=== PATIENT | male | born 1940 | race American Indian/Alaskan Native ===

== ENCOUNTER 2019-02-07 17:05 | Inpatient (IN) | payer MEDICARE ==
[2019-02-07 17:05] VITALS: BMI 33.0
[2019-02-07] MEDS ORDERED: Morphine 4 MG/ML VIAL IV ONE (18:20)
[2019-02-07] MEDS ORDERED: Morphine 4 MG/ML VIAL ONE (18:34)
[2019-02-07 18:38] LABS: BASO # 0.1 K/uL (0.0-0.2); BASO % 2.3 % (0.0-2.0); EOS # 0.1 K/uL (0.0-0.7); EOS % 2.2 % (0.0-4.0); HEMOGLOBIN 12.1 g/dL (12.0-18.0); LYMPH # 0.6 K/uL (1.0-4.3); MEAN CORPUSCULAR HEMOGLOBIN 24.5 pg (27.0-31.0); MEAN PLATELET VOLUME 9.2 fL (7.2-11.7); MONO # 0.5 K/uL (0.0-0.8); MONO % 12.7 % (0.0-10.0); NEUT # 2.5 K/uL (1.8-7.0); NEUT % 66.8 % (50.0-75.0); NRBC % 0.1 % (0.0-2.0); RBC 4.92 Mil/uL (4.40-5.90); RED CELL DISTRIBUTION WIDTH 15.5 % (11.5-14.5); WHITE BLOOD COUNT 3.7 K/uL (4.8-10.8)
[2019-02-07 18:41] LABS: MEAN CELL VOLUME 76.6 fL (80.0-94.0)
[2019-02-07 18:45] LABS: INR 1.2; PROTHROMBIN TIME 12.6 SECONDS (9.7-12.2)
--- NOTE | 2019-02-07 18:47 | RAD ---
Date of service: 02/07/2019 HISTORY: Shortness of breath COMPARISON: No prior. TECHNIQUE: Chest PA and lateral FINDINGS: LINES AND TUBES: None. LUNG AND PLEURA: The lungs are well inflated. There is a 7 mm faint nodule in the left upper pole. There is mild pulmonary venous no pleural effusion or pneumothorax. HEART AND MEDIASTINUM: There is moderate cardiomegaly. No aortic atherosclerotic calcifications present. The hilar and mediastinal contours are within normal limits. SKELETAL STRUCTURES: The bony structures are within normal limits for the patient's age. VISUALIZED UPPER ABDOMEN: Normal. OTHER FINDINGS: None. IMPRESSION: No active pulmonary disease. Congestion. 7 mm faint nodule in the left upper pole. Dedicated CT scan of the thorax without intravenous contrast is recommended for further characterization. Moderate cardiomegaly and mild pulmonary venous congestion. The final report is tagged to the PA review folder.
--- NOTE | 2019-02-07 19:03 | C.PDOC ---
History Of Present Illness 78 year old male with PMHx of sarcoidosis is sent to the ED for evaluation by Dr. Louise for chest wall pain. Patient has CT scan done on 02/04 for chest pain as well which showed lung masses and lymph node suspicious for malignancy. Patient denies fever, chills, headache, SOB, palpitations, rash, injury, fall, trauma. Time Seen by Provider: 02/07/19 18:12 Chief Complaint (Nursing): Chest Pain History Per: Patient History/Exam Limitations: no limitations Onset/Duration Of Symptoms: Days Current Symptoms Are (Timing): Still Present Quality: "Pain" Recent travel outside of the [place]: No Additional History Per: Patient Past Medical History Reviewed: Historical Data, Nursing Documentation, Vital Signs Vital Signs: Last Vital Signs Temp 97.4 F L 02/07/19 17:08 Pulse 82 02/07/19 18:39 Resp 22 02/07/19 18:39 BP 160/93 H 02/07/19 18:39 Pulse Ox 100 02/07/19 18:39 - Medical History PMH: HTN, Hypercholesterolemia Denies: Chronic Kidney Disease Surgical History: Tonsillectomy Denies: Pacemaker - [facility] Procedures CORONAR ARTERIOGR-2 CATH (11/23/06) ESOPHAGOGASTRODUODENOSCOPY [EGD] W/CLOSED BIOPSY (08/24/15) INTRODUCTION OF SERUM/TOX/VACCINE INTO MUSCLE, PERC APPROACH (02/01/18) LEFT HEART CARDIAC CATH (11/23/06) LT HEART ANGIOCARDIOGRAM (11/23/06) Family History: States: Unknown Family Hx - Social History Hx Alcohol Use: No Hx Substance Use: No - Immunization History Hx Tetanus Toxoid Vaccination: No Hx Influenza Vaccination: No Hx Pneumococcal Vaccination: No Review Of Systems Constitutional: Negative for: Fever, Chills Cardiovascular: Positive for: Chest Pain. Negative for: Palpitations Respiratory: Negative for: Cough, Shortness of Breath Gastrointestinal: Negative for: Nausea, Vomiting, Abdominal Pain Skin: Negative for: Rash Neurological: Negative for: Weakness, Numbness Physical Exam - Physical Exam Appears: Non-toxic, No Acute Distress Skin: Normal Color, Warm, Dry Head: Atraumatic, Normacephalic Eye(s): bilateral: Normal Inspection Neck: Normal ROM, Supple Chest: Symmetrical Cardiovascular: Rhythm Regular Respiratory: Normal Breath Sounds, No Rales, No Rhonchi, No Wheezing Gastrointestinal/Abdominal: Soft, No Tenderness, No Guarding, No Rebound Extremity: Normal ROM, No Tenderness, No Swelling Neurological/Psych: Oriented x3, Normal Speech, Normal Cognition Gait: Steady ED Course And Treatment - Laboratory Results Result Diagrams: 02/07/19 18:31 02/07/19 18:31 Lab Results: PT 12.6 SECONDS (9.7-12.2) H 02/07/19 18:31 INR 1.2 02/07/19 18:31 APTT 30 SECONDS (21-34) 02/07/19 18:31 ECG: Interpreted By Me, Viewed By Me ECG Rhythm: Sinus Rhythm, L BBB Interpretation Of ECG: Left axis deviation, NO ST/T wave changes Rate From EC (BPM) O2 Sat by Pulse Oximetry: 100 (ON RA) Pulse Ox Interpretation: Normal Medical Decision Making Medical Decision Making: Assessment: Chest pain, lung masses Plan: * EKG * Labs * CXR * Morphine 4 mg IVP * Toradol 30 mg IVP Case discussed with Dr. Louise, wishes to have Nile Henning consulted and admit the patient for chest pain. Disposition Discussed With : Bernardino Henning Doctor Will See Patient In The: Hospital Counseled Patient/Family Regarding: Studies Performed, Diagnosis - Disposition Disposition: HOSPITALIZED Disposition Time: 19:11 Condition: FAIR - Clinical Impression Clinical Impression: Chest pain, Lung mass - Scribe Statement The provider has reviewed the documentation as recorded by the Scribe Warner Garcia All medical record entries made by the Scribe were at my direction and personally dictated by me. I have reviewed the chart and agree that the record accurately reflects my personal performance of the history, physical exam, medical decision making, and the department course for this patient. I have also personally directed, reviewed, and agree with the discharge instructions and disposition.
[2019-02-07 19:06] LABS: ALB/GLOB RATIO 0.7 (1.0-2.1); ALBUMIN 3.9 g/dL (3.5-5.0); AST/SGOT 28 U/L (17-59); BLOOD UREA NITROGEN 26 mg/dL (9-20); CALCIUM 10.3 mg/dl (8.6-10.4); GFR NON-AFRICAN AMERICAN 39
[2019-02-07 19:15] LABS: ALT/SGPT < 6 U/L (21-72)
[2019-02-07 19:16] LABS: B-TYPE NATRIURETIC PEPTIDE 461 pg/mL (0-900)
[2019-02-07 21:04] VITALS: RESP 20
[2019-02-07] MEDS: (Novolin R) Insulin Human Regular 100 units/ml vial SC SCH (21:54)
[2019-02-07 22:42] LABS: SQUAMOUS EPITHIAL < 1 /hpf (0-5); URINE BILIRUBIN NEGATIVE (NEGATIVE); URINE BLOOD NEGATIVE (NEGATIVE); URINE CLARITY Clear (Clear); URINE COLOR Yellow (YELLOW); URINE GLUCOSE (UA) NORMAL (Normal); URINE LEUKOCYTE ESTERASE NEG Leu/uL (Negative); URINE PROTEIN NEGATIVE (NEGATIVE); URINE UROBILINOGEN NORMAL mg/dL (0.2-1.0)
[2019-02-07] MEDS: Magnesium Sulfate 1 gm in D5W 1 GM/100 ML BAG IVPB SCH (23:08)
[2019-02-07 23:12] LABS: CK-MB 1.19 ng/mL (0.0-3.38); TROPONIN I 0.013 ng/mL (0.00-0.120)
[2019-02-08] MEDS: Magnesium Sulfate 1 gm in D5W 1 GM/100 ML BAG IVPB SCH (00:06)
[2019-02-08] MEDS: (Novolin R) Insulin Human Regular 100 units/ml vial SC SCH ×4 (08:00→21:45)
[2019-02-08 08:34] LABS: HEMOGLOBIN 11.3 g/dL (12.0-18.0); MEAN CELL VOLUME 76.3 fL (80.0-94.0); MEAN CORPUSCULAR HEMOGLOBIN 24.4 pg (27.0-31.0); MEAN PLATELET VOLUME 9.7 fL (7.2-11.7); RBC 4.64 Mil/uL (4.40-5.90); RED CELL DISTRIBUTION WIDTH 15.3 % (11.5-14.5); WHITE BLOOD COUNT 3.2 K/uL (4.8-10.8)
[2019-02-08 08:49] LABS: CALCIUM 10.1 mg/dl (8.6-10.4)
[2019-02-08] MEDS ORDERED: Lidocaine 1% Inj (20ml) INFIL ONE (09:00)
[2019-02-08] MEDS: Enoxaparin 40 mg Syringe SC SCH (10:24)
--- NOTE | 2019-02-08 13:57 | CP.PCM.CON ---
History of Present Illness - History of Present Illness History of Present Illness: 78 year old male with PMHx of sarcoidosis is sent to the ED for evaluation by Dr. Louise for chest wall pain. Patient has CT scan done on 02/04 for chest pain as well which showed lung masses and lymph node suspicious for malignancy. Ivan char denies fever, chills, headache, SOB, palpitations, rash, injury, fall, trauma. At the time of examination sitting in bed having lunch. Had bone marrow biopsy done today. Still have some chest pain which is relieved with anangesics. Past Patient History - Infectious Disease Hx of Infectious Diseases: None - Past Medical History & Family History Past Medical History?: Yes - Past Social History Smoking Status: Never Smoked - CARDIAC Hx Cardiac Disorders: Yes Hx Hypercholesterolemia: Yes Hx Hypertension: Yes Hx Pacemaker: No - PULMONARY Hx Respiratory Disorders: No - NEUROLOGICAL Hx Neurological Disorder: No - HEENT Hx HEENT Problems: No - RENAL Hx Chronic Kidney Disease: No - ENDOCRINE/METABOLIC Hx Endocrine Disorders: Yes Hx Diabetes Mellitus Type 1: Yes - HEMATOLOGICAL/ONCOLOGICAL Hx Blood Disorders: Yes (SICKLE CELL TRAIT) - INTEGUMENTARY Hx Dermatological Problems: No - MUSCULOSKELETAL/RHEUMATOLOGICAL Hx Musculoskeletal Disorders: Yes Hx Falls: No Other/Comment: CARPAL TUNNEL - GASTROINTESTINAL Hx Gastrointestinal Disorders: No - GENITOURINARY/GYNECOLOGICAL Hx Genitourinary Disorders: No - PSYCHIATRIC Hx Psychophysiologic Disorder: No Hx Substance Use: No - SURGICAL HISTORY Hx Surgeries: Yes Hx Tonsillectomy: Yes Other/Comment: RIGHT HAND CARPAL TUNELL SURGERY - ANESTHESIA Hx Anesthesia: Yes Hx Anesthesia Reactions: No Meds Allergies/Adverse Reactions: Allergies Allergy/AdvReac Type Severity Reaction Status Date / Time celecoxib [From Celebrex] Allergy RASH Verified 02/07/19 17:18 - Medications Medications: Current Medications Enoxaparin Sodium (Lovenox) 40 mg SC DAILY [facility] Last Admin: 02/08/19 10:24 Dose: Not Given Glimepiride (Amaryl) 2 mg PO ACB [facility] Last Admin: 02/08/19 08:59 Dose: 2 mg Influenza Virus Vaccine (Flucelvax Quad 1130-4884 Syr) 60 mcg IM .ONCE ONE Stop: 02/09/19 14:01 Insulin Human Regular (Novolin R) 0 unit SC [facility]; Protocol Last Admin: 02/08/19 12:10 Dose: Not Given Losartan Potassium (Cozaar) 50 mg PO DAILY [facility] Last Admin: 02/08/19 10:23 Dose: 50 mg Morphine Sulfate (Morphine) 2 mg IVP Q4 PRN PRN Reason: Pain, moderate (4-7) Last Admin: 02/08/19 10:25 Dose: 2 mg Rosuvastatin Calcium (Crestor) 5 mg PO [facility] Physical Exam - Neck Exam Neck exam: Positive for: Normal Inspection - Respiratory Exam Respiratory Exam: NORMAL BREATHING PATTERN - Cardiovascular Exam Cardiovascular Exam: REGULAR RHYTHM - Extremities Exam Extremities exam: Positive for: normal inspection - Neurological Exam Neurological exam: Alert, Oriented x3 Results - Vital Signs Recent Vital Signs: Last Vital Signs Temp 97.6 F 02/08/19 07:00 Pulse 76 02/08/19 07:54 Resp 20 02/08/19 07:00 BP 131/91 H 02/08/19 07:00 Pulse Ox 96 02/08/19 07:00 - Labs Result Diagrams: 02/08/19 08:26 02/08/19 08:26 Labs: Laboratory Results - last 24 hr 02/07/19 02/07/19 02/07/19 18:31 18:31 18:31 WBC 3.7 L RBC 4.92 Hgb 12.1 Hct 37.7 MCV 76.6 L D MCH 24.5 L MCHC 32.0 L RDW 15.5 H Plt Count 165 MPV 9.2 Neut % (Auto) 66.8 Lymph % (Auto) 16.0 L [place] % (Auto) 12.7 H Eos % (Auto) 2.2 Baso % (Auto) 2.3 H Neut # (Auto) 2.5 Lymph # (Auto) 0.6 L [place] # (Auto) 0.5 Eos # (Auto) 0.1 Baso # (Auto) 0.1 PT 12.6 H INR 1.2 APTT 30 Sodium 140 Potassium 4.4 Chloride 106 Carbon Dioxide 24 Anion Gap 15 BUN 26 H Creatinine 1.7 H Est GFR ( Amer) 48 Est GFR (Non-Af Amer) 39 POC Glucose (mg/dL) Random Glucose 95 Calcium 10.3 Magnesium 1.5 L Total Bilirubin 0.3 AST 28 ALT < 6 L D Alkaline Phosphatase 74 Lactate Dehydrogenase Total Creatine Kinase CK-MB (Mass) Troponin I < 0.0120 NT-Pro-B Natriuret Pep 461 Total Protein 9.3 H Albumin 3.9 Globulin 5.4 H Albumin/Globulin Ratio 0.7 L Urine Color Urine Clarity Urine pH Ur Specific [place] Urine Protein Urine Glucose (UA) Urine Ketones Urine Blood Urine Nitrate Urine Bilirubin Urine Urobilinogen Ur Leukocyte Esterase Urine WBC (Auto) Urine RBC (Auto) Ur Squamous Epith Cells 02/07/19 02/07/19 02/07/19 21:44 22:23 22:43 WBC RBC Hgb Hct MCV MCH MCHC RDW Plt Count MPV Neut % (Auto) Lymph % (Auto) [place] % (Auto) Eos % (Auto) Baso % (Auto) Neut # (Auto) Lymph # (Auto) [place] # (Auto) Eos # (Auto) Baso # (Auto) PT INR APTT Sodium Potassium Chloride Carbon Dioxide Anion Gap BUN Creatinine Est GFR ( Amer) Est GFR (Non-Af Amer) POC Glucose (mg/dL) 131 H Random Glucose Calcium Magnesium Total Bilirubin AST ALT Alkaline Phosphatase Lactate Dehydrogenase Total Creatine Kinase 45 L CK-MB (Mass) 1.19 Troponin I 0.0130 NT-Pro-B Natriuret Pep Total Protein Albumin Globulin Albumin/Globulin Ratio Urine Color Yellow Urine Clarity Clear Urine pH 5.0 Ur Specific [place] 1.018 Urine Protein Negative Urine Glucose (UA) Normal Urine Ketones Negative Urine Blood Negative Urine Nitrate Negative Urine Bilirubin Negative Urine Urobilinogen Normal Ur Leukocyte Esterase Neg Urine WBC (Auto) 1 Urine RBC (Auto) < 1 Ur Squamous Epith Cells < 1 02/08/19 02/08/19 02/08/19 08:26 08:26 13:30 WBC 3.2 L RBC 4.64 Hgb 11.3 L Hct 35.4 MCV 76.3 L MCH 24.4 L MCHC 32.0 L RDW 15.3 H Plt Count 142 MPV 9.7 Neut % (Auto) Lymph % (Auto) [place] % (Auto) Eos % (Auto) Baso % (Auto) Neut # (Auto) Lymph # (Auto) [place] # (Auto) Eos # (Auto) Baso # (Auto) PT INR APTT Sodium 137 Potassium 4.8 Chloride 106 Carbon Dioxide 25 Anion Gap 11 BUN 31 H Creatinine 1.9 H Est GFR ( Amer) 42 Est GFR (Non-Af Amer) 35 POC Glucose (mg/dL) Random Glucose 95 Calcium 10.1 Magnesium Total Bilirubin AST ALT Alkaline Phosphatase Lactate Dehydrogenase 365 Total Creatine Kinase CK-MB (Mass) Troponin I NT-Pro-B Natriuret Pep Total Protein Albumin Globulin Albumin/Globulin Ratio Urine Color Urine Clarity Urine pH Ur Specific [place] Urine Protein Urine Glucose (UA) Urine Ketones Urine Blood Urine Nitrate Urine Bilirubin Urine Urobilinogen Ur Leukocyte Esterase Urine WBC (Auto) Urine RBC (Auto) Ur Squamous Epith Cells Assessment & Plan (1) Chest pain Assessment and Plan: Detailed history with chart review and CT scan reports with relieve of pain at this is suggestive of non-cardiac origin. He had some cardiac work-up at medical center. will review record. Recommend correct electrolyte abnormalities. Continue analgesics. Status: Acute
[2019-02-08 14:01] LABS: IMMUNOGLOBULIN A 132.1 mg/dL (70.0-400.0); IMMUNOGLOBULIN M 37.9 mg/dL (40.0-230.0)
[2019-02-08 14:18] LABS: IMMUNOGLOBULIN G 3707.9 mg/dL (700.0-1600.0)
--- NOTE | 2019-02-08 21:33 | CP.PCM.HP ---
Present on Admission - Present on Admission Any Indicators Present on Admission: No Past Patient History - Infectious Disease Hx of Infectious Diseases: None - Past Medical History & Family History Past Medical History?: Yes - Past Social History Smoking Status: Never Smoked - CARDIAC Hx Cardiac Disorders: Yes Hx Hypercholesterolemia: Yes Hx Hypertension: Yes - PULMONARY Hx Respiratory Disorders: No - NEUROLOGICAL Hx Neurological Disorder: No - HEENT Hx HEENT Problems: No - RENAL Hx Chronic Kidney Disease: No - ENDOCRINE/METABOLIC Hx Diabetes Mellitus Type 1: Yes - HEMATOLOGICAL/ONCOLOGICAL Hx Blood Disorders: Yes (SICKLE CELL TRAIT) - INTEGUMENTARY Hx Dermatological Problems: No - MUSCULOSKELETAL/RHEUMATOLOGICAL Hx Musculoskeletal Disorders: Yes Hx Falls: No Other/Comment: CARPAL TUNNEL - GASTROINTESTINAL Hx Gastrointestinal Disorders: No - GENITOURINARY/GYNECOLOGICAL Hx Genitourinary Disorders: No - PSYCHIATRIC Hx Psychophysiologic Disorder: No Hx Substance Use: No - SURGICAL HISTORY Hx Surgeries: Yes Hx Tonsillectomy: Yes Other/Comment: RIGHT HAND CARPAL TUNELL SURGERY - ANESTHESIA Hx Anesthesia: Yes Hx Anesthesia Reactions: No Meds Allergies/Adverse Reactions: Allergies Allergy/AdvReac Type Severity Reaction Status Date / Time celecoxib [From Celebrex] Allergy RASH Verified 02/07/19 17:18 Results - Vital Signs Recent Vital Signs: Last Vital Signs Temp 97.5 F L 02/08/19 16:00 Pulse 89 02/08/19 18:00 Resp 20 02/08/19 16:00 BP 165/105 H 02/08/19 16:00 Pulse Ox 98 02/08/19 16:00 - Labs Result Diagrams: 02/08/19 08:26 02/08/19 08:26 Labs: Laboratory Results - last 24 hr 02/07/19 02/07/19 02/07/19 21:44 22:23 22:43 WBC RBC Hgb Hct MCV MCH MCHC RDW Plt Count MPV Sodium Potassium Chloride Carbon Dioxide Anion Gap BUN Creatinine Est GFR ( Amer) Est GFR (Non-Af Amer) POC Glucose (mg/dL) 131 H Random Glucose Calcium Lactate Dehydrogenase Total Creatine Kinase 45 L CK-MB (Mass) 1.19 Troponin I 0.0130 Prostate Specific Ag Urine Color Yellow Urine Clarity Clear Urine pH 5.0 Ur Specific [place] 1.018 Urine Protein Negative Urine Glucose (UA) Normal Urine Ketones Negative Urine Blood Negative Urine Nitrate Negative Urine Bilirubin Negative Urine Urobilinogen Normal Ur Leukocyte Esterase Neg Urine WBC (Auto) 1 Urine RBC (Auto) < 1 Ur Squamous Epith Cells < 1 IgG IgA IgM 02/08/19 02/08/19 02/08/19 08:26 08:26 11:22 WBC 3.2 L RBC 4.64 Hgb 11.3 L Hct 35.4 MCV 76.3 L MCH 24.4 L MCHC 32.0 L RDW 15.3 H Plt Count 142 MPV 9.7 Sodium 137 Potassium 4.8 Chloride 106 Carbon Dioxide 25 Anion Gap 11 BUN 31 H Creatinine 1.9 H Est GFR ( Amer) 42 Est GFR (Non-Af Amer) 35 POC Glucose (mg/dL) 94 Random Glucose 95 Calcium 10.1 Lactate Dehydrogenase Total Creatine Kinase CK-MB (Mass) Troponin I Prostate Specific Ag Urine Color Urine Clarity Urine pH Ur Specific [place] Urine Protein Urine Glucose (UA) Urine Ketones Urine Blood Urine Nitrate Urine Bilirubin Urine Urobilinogen Ur Leukocyte Esterase Urine WBC (Auto) Urine RBC (Auto) Ur Squamous Epith Cells IgG IgA IgM 02/08/19 02/08/19 13:30 13:30 WBC RBC Hgb Hct MCV MCH MCHC RDW Plt Count MPV Sodium Potassium Chloride Carbon Dioxide Anion Gap BUN Creatinine Est GFR ( Amer) Est GFR (Non-Af Amer) POC Glucose (mg/dL) Random Glucose Calcium Lactate Dehydrogenase 365 Total Creatine Kinase CK-MB (Mass) Troponin I Prostate Specific Ag 0.787 Urine Color Urine Clarity Urine pH Ur Specific [place] Urine Protein Urine Glucose (UA) Urine Ketones Urine Blood Urine Nitrate Urine Bilirubin Urine Urobilinogen Ur Leukocyte Esterase Urine WBC (Auto) Urine RBC (Auto) Ur Squamous Epith Cells IgG 3707.9 H IgA 132.1 IgM 37.9 L
--- NOTE | 2019-02-08 21:42 | CON ---
DATE: 02/08/2019 HEMATOLOGY CONSULTATION HISTORY OF PRESENT ILLNESS: This is a 78-year-old man who has a complex medical history, but is coming to the hospital with severe pain, diffusely in his bones. About a year and half ago, he was evaluated in [place] for mediastinal lymph nodes and was found to have on biopsy sarcoidosis, complicated by pulmonary embolism. I saw the patient in the beginning of 12/2018 for evaluation of increasing globulin and I reviewed all the immunoelectrophoresis etc., and there is a possibility that he might have early myeloma. The PET scan that was done about a year ago was negative for any bone lesions at that time and we discussed doing a bone marrow aspiration and biopsy and he said that he felt perfectly fine and he wanted to wait on that and no symptoms whatsoever specifically of any bone pain. However, this week suddenly he started having severe pains in his bones, went to the emergency room at [facility] where they did a CAT scan and found that he did not have pulmonary emboli, did have the mediastinal lymph nodes, but also they showed lytic lesions in his bones. When he came to see me in the office 2 days ago, he hobbled and he was in severe pain, unable to really walk well at all. I feel this is a huge difference from earlier 2 weeks or 3 weeks ago, he said that is right. I put him on ibuprofen 600 mg every 8 hours plus Percocet, but when he called me up on Sunday, he said that he was feeling severe, severe pain diffusely and could not really move. So, I advised him to be admitted to the hospital for basically for just pain control though so, the cause of this. PHYSICAL EXAMINATION: SKIN: No petechiae, no bruises. HEENT: Anicteric. NODES: Nonpalpable in the axillary, cervical, supraclavicular, or inguinal regions. LUNGS: Clear. No vertebral jorge tenderness. HEART: S1 and S2. ABDOMEN: Shows no liver, no spleen, no tenderness, and no rebound. No ascites. EXTREMITIES: No edema, Rimma's sign negative. CENTRAL NERVOUS SYSTEM: No focal finding. ASSESSMENT AND PLAN: At this point, I performed a bone marrow aspiration biopsy at the left posterior iliac crest using 1% lidocaine in sterile conditions. I was unable to get aspirate, but I got about 1.5 cm deep bone marrow biopsy, which I am sending out. In the meantime, I am going to do a bone scan and re-evaluate for the laboratory testings in terms of his immunoelectrophoresis and his PSA. While we are awaiting the diagnostic tests, specifically, the bone scan, the bone marrow biopsy will take several days to get back as an outpatient, he will initially be treated for the pain control, possibly get physical therapy to see him and help him with the pain. Christian Louise MD
--- NOTE | 2019-02-09 04:54 | HP ---
CHIEF COMPLAINT: Chest pain. HISTORY OF PRESENT ILLNESS: This is a 78-year-old male who has history of sarcoidosis, and he is being followed up by his oncologist for some lymphadenopathy and there is a possibility of lymphoma, and the patient has lung masses and the patient is status post biopsy by his oncologist this afternoon. Yesterday, on the day of admission, the patient developed left precordial chest pain which is dull, nonradiating, not associated with diaphoresis. Chest pain is nonexertional, and it is positional. It is not associated with any dyspepsia, nausea, or vomiting. According to the patient, there is no pleuritic component. The patient denies any history of dyspnea on exertion, orthopnea, or paroxysmal nocturnal dyspnea. The patient denies aggravation of pain by the movement. The patient denies any cough, sore throat, or runny nose. The patient denies any nausea, vomiting, or diarrhea. The patient denies any polyuria, polydipsia, or polyphagia. The patient denies any history of hematuria or pyuria. He denies any history of sneezing, itchy eyes, or itchy nose. He also has history of sickle cell disease. He denies any history of tingling, numbness, or paresthesia. There is no history of fever or chills. PAST MEDICAL HISTORY: Positive for lymphadenopathy. For that, he is undergoing biopsy of the bone marrow. Hypertension, hyperlipidemia, and sarcoidosis. He has type 2 diabetes. SOCIAL HISTORY: He is nonsmoker, non-EtOH user. CURRENT MEDICATIONS AT HOME: He is on Lochol 20 mg daily, Cozaar 50 mg daily, and glimepiride 2 mg daily. PHYSICAL EXAMINATION: GENERAL: An elderly male. At the moment, he denies any distress. VITAL SIGNS: Blood pressure 165/105, pulse 82, respiratory rate 20, temperature 97.5. SKIN: No rashes. No bruises. No purpura. No petechiae. No ecchymosis. HEENT: Atraumatic, normocephalic. Negative pallor. Negative jaundice. Extraocular movements are intact. NECK: Supple. Flat neck vein. No JVD. No lymph node. No thyromegaly. No carotid bruit. The patient has lymph nodes in the neck, axilla, and they are all palpable. CHEST WALL: Bilateral symmetrical expansion. No masses. No gynecomastia. LUNGS: Bilateral scattered rhonchi and rales. Normal air entry. No pleural rub, and equal air entry. CARDIOVASCULAR SYSTEM: PMI in fifth intercostal space. No heave. No thrill. No murmur. No S3. S4 positive. ABDOMEN: Soft, nontender. Bowel sounds are positive. GROIN: The patient has bilateral lymphadenopathy. RECTAL: Enlarged prostate. No tenderness. No bleeding. EXTREMITIES: No clubbing, cyanosis, or edema. CENTRAL NERVOUS SYSTEM: Awake, alert, oriented x3. Cranial nerve II through XII are normal. Power 5/5 x4. Plantars are downgoing, and the patient has normal peripheral pulses. ASSESSMENT: 1. Chest pain. Rule out myocardial infarction. 2. Hypertension, poorly controlled. 3. Lymphadenopathy. Rule out lymphoma. 4. Anemia, most likely it is of related with his lymphadenopathy. 5. Dehydration, prerenal azotemia. PLAN: Cardiac enzymes, cardiology evaluation, oxygen, blood pressure control, AccuCheck sliding scale, monitor the patient. Bernardino Henning MD
[2019-02-09] MEDS: (Novolin R) Insulin Human Regular 100 units/ml vial SC SCH ×4 (07:52→21:56)
[2019-02-09] MEDS: Enoxaparin 40 mg Syringe SC SCH (09:02)
[2019-02-09] MEDS ORDERED: Influenza Vaccine 60 mcg/0.5 mL SYR (4YR UP) IM ONE (14:00)
--- NOTE | 2019-02-09 14:13 | CP.PCM.PN ---
Subjective - Date & Time of Evaluation Date of Evaluation: 02/09/19 Time of Evaluation: 14:11 - Subjective Subjective: Feeling better and chest pain has improved. Objective - Vital Signs/Intake and Output Vital Signs (last 24 hours): Temp Pulse Resp BP Pulse Ox 98.0 F 81 20 170/99 H 98 02/09/19 07:00 02/09/19 07:53 02/09/19 07:00 02/09/19 07:00 02/09/19 07:00 - Medications Medications: Current Medications Enoxaparin Sodium (Lovenox) 40 mg SC DAILY [facility] Last Admin: 02/09/19 09:02 Dose: 40 mg Glimepiride (Amaryl) 2 mg PO ACB [facility] Last Admin: 02/09/19 09:02 Dose: 2 mg Insulin Human Regular (Novolin R) 0 unit SC [facility]; Protocol Last Admin: 02/09/19 13:14 Dose: Not Given Losartan Potassium (Cozaar) 50 mg PO DAILY [facility] Last Admin: 02/09/19 09:02 Dose: 50 mg Morphine Sulfate (Morphine) 2 mg IVP Q4 PRN PRN Reason: Pain, moderate (4-7) Last Admin: 02/09/19 12:46 Dose: 2 mg Rosuvastatin Calcium (Crestor) 5 mg PO HS [facility] Last Admin: 02/08/19 21:29 Dose: 5 mg - Labs Labs: 02/08/19 08:26 02/08/19 08:26 PT 12.6 SECONDS (9.7-12.2) H 02/07/19 18:31 INR 1.2 02/07/19 18:31 APTT 30 SECONDS (21-34) 02/07/19 18:31 - Neck Exam Neck Exam: Normal Inspection - Respiratory Exam Respiratory Exam: NORMAL BREATHING PATTERN - Cardiovascular Exam Cardiovascular Exam: REGULAR RHYTHM - Extremities Exam Extremities Exam: Normal Inspection - Neurological Exam Neurological Exam: Alert, Oriented x3 Assessment and Plan (1) Chest pain Assessment & Plan: Musculoskeletal, Plans for echocardiogram to assess LV systolic function and further management accordingly. Status: Acute (2) Abnormal EKG Assessment & Plan: RBBB with NSR. Continue monitoring. Awaiting for Echocardiogram and Bone scan. Further management accordingly. Status: Acute
--- NOTE | 2019-02-09 23:21 | CP.PCM.PN ---
Subjective - Date & Time of Evaluation Date of Evaluation: 02/09/19 Time of Evaluation: 19:25 - Subjective Subjective: dictated Objective - Vital Signs/Intake and Output Vital Signs (last 24 hours): Temp Pulse Resp BP Pulse Ox 97.4 F L 88 20 148/88 96 02/09/19 15:54 02/09/19 16:00 02/09/19 15:54 02/09/19 15:54 02/09/19 15:54 Intake and Output: 02/09/19 02/10/19 18:59 06:59 Intake Total 600 480 Balance 600 480 - Medications Medications: Current Medications Enoxaparin Sodium (Lovenox) 40 mg SC DAILY [facility] Last Admin: 02/09/19 09:02 Dose: 40 mg Glimepiride (Amaryl) 2 mg PO ACB [facility] Last Admin: 02/09/19 09:02 Dose: 2 mg Insulin Human Regular (Novolin R) 0 unit SC [facility]; Protocol Last Admin: 02/09/19 21:56 Dose: Not Given Losartan Potassium (Cozaar) 100 mg PO DAILY [facility] Morphine Sulfate (Morphine) 2 mg IVP Q4 PRN PRN Reason: Pain, moderate (4-7) Last Admin: 02/09/19 17:24 Dose: 2 mg Rosuvastatin Calcium (Crestor) 5 mg PO HS [facility] Last Admin: 02/09/19 21:29 Dose: 5 mg - Labs Labs: 02/08/19 08:26 02/08/19 08:26 PT 12.6 SECONDS (9.7-12.2) H 02/07/19 18:31 INR 1.2 02/07/19 18:31 APTT 30 SECONDS (21-34) 02/07/19 18:31
--- NOTE | 2019-02-10 03:40 | PN ---
DATE: 02/09/2019 SUBJECTIVE: The patient has been seen by Cardiology. He has decreased chest pain. No shortness of breath. No nausea or vomiting. No cough. No fever. PHYSICAL EXAMINATION: VITAL SIGNS: Blood pressure 148/88, pulse 86, respiratory rate 20, temperature 97.4. LUNGS: Clear. No rales. No rhonchi. CARDIOVASCULAR SYSTEM: S1 and S2, regular. No heave. No thrill. ABDOMEN: Soft, nontender. Bowel sounds are positive. ASSESSMENT: 1. Chest pain. Rule out coronary artery disease. 2. Chronic kidney disease. 3. Hypertension. 4. Anemia. 5. The patient has lymphadenopathy. Rule out lymphoma. PLAN: Bone marrow biopsy and nuclear stress test in a.m. Monitor the patient. Bernardino Henning MD
[2019-02-10] MEDS: (Novolin R) Insulin Human Regular 100 units/ml vial SC SCH ×3 (07:35→17:32)
[2019-02-10 07:36] LABS: BASO % 0.4 % (0.0-2.0); EOS # 0.1 K/uL (0.0-0.7); EOS % 3.8 % (0.0-4.0); HEMOGLOBIN 11.6 g/dL (12.0-18.0); LYMPH # 0.7 K/uL (1.0-4.3); LYMPH % 21.7 % (20.0-40.0); MEAN CELL VOLUME 75.5 fL (80.0-94.0); MEAN CORPUSCULAR HEMOGLOBIN 24.2 pg (27.0-31.0); MEAN PLATELET VOLUME 9.3 fL (7.2-11.7); MONO # 0.5 K/uL (0.0-0.8); MONO % 15.4 % (0.0-10.0); NEUT # 1.8 K/uL (1.8-7.0); NEUT % 58.7 % (50.0-75.0); NRBC % 0.1 % (0.0-2.0); RBC 4.82 Mil/uL (4.40-5.90); RED CELL DISTRIBUTION WIDTH 15.3 % (11.5-14.5); WHITE BLOOD COUNT 3.1 K/uL (4.8-10.8)
[2019-02-10] MEDS: Enoxaparin 40 mg Syringe SC SCH (08:59)
--- NOTE | 2019-02-10 17:16 | CP.PCM.PN ---
Subjective - Date & Time of Evaluation Date of Evaluation: 02/10/19 Time of Evaluation: 11:10 - Subjective Subjective: pateint seen today, denies any sob, dizziness, pain to the mid CHEST WALL area improved except when he pulled his arm to the back pain reproducab; e vss and labs reviewed - stable No overnight events reported by RN and no overnigh tevents recorded on monitor Objective - Vital Signs/Intake and Output Vital Signs (last 24 hours): Temp Pulse Resp BP Pulse Ox 98.8 F 85 20 151/93 H 97 02/10/19 07:45 02/10/19 15:22 02/10/19 07:45 02/10/19 14:37 02/10/19 14:37 Intake and Output: 02/10/19 02/10/19 06:59 18:59 Intake Total 720 380 Output Total 600 Balance 120 380 - Medications Medications: Current Medications Enoxaparin Sodium (Lovenox) 40 mg SC DAILY [facility] Last Admin: 02/10/19 08:59 Dose: 40 mg Glimepiride (Amaryl) 2 mg PO ACB [facility] Last Admin: 02/10/19 08:59 Dose: 2 mg Insulin Human Regular (Novolin R) 0 unit SC ACHS [facility]; Protocol Last Admin: 02/10/19 11:54 Dose: Not Given Losartan Potassium (Cozaar) 100 mg PO DAILY [facility] Last Admin: 02/10/19 08:59 Dose: 100 mg Morphine Sulfate (Morphine) 2 mg IVP Q4 PRN PRN Reason: Pain, moderate (4-7) Last Admin: 02/10/19 01:42 Dose: 2 mg Rosuvastatin Calcium (Crestor) 5 mg PO HS [facility] Last Admin: 02/09/19 21:29 Dose: 5 mg - Labs Labs: 02/10/19 07:26 02/10/19 07:26 PT 12.6 SECONDS (9.7-12.2) H 02/07/19 18:31 INR 1.2 02/07/19 18:31 APTT 30 SECONDS (21-34) 02/07/19 18:31 Assessment and Plan - Assessment and Plan (Free Text) Assessment: A/ P 78 year old male with PMHx of sarcoidosis is sent to the ED for evaluation by Dr. Louise for chest wall pain. troponin x 3- negative s/p bone marrow biopsy- result pending Dr. 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 Louise, cleared from hem/oncology for discharge home today and f/u with his office on sun and Dr. Louise will discuss the result and further treatment plan discussed with Dr. Henning, cleared for discharge home today and f/u with Dr. Ricki Youssef (PMD)office in 1 week discharge plan discussed with patient who understands and agrees with plan patient instructed to returns to ED if symptoms returs or any other concerning symptoms
[2019-02-10 17:18] VITALS: BP 144/92; PULSE 81; TEMP 97.2; O2SAT 96
--- NOTE | 2019-02-10 17:49 | CP.PCM.CON ---
History of Present Illness - History of Present Illness History of Present Illness: Patient is a 78 years old male with PMHX of Sarcoidoisis presenting to the ED for nonpleurtic chest pain. Patient has a quality assurance monitor body that he follows-up for his Sarcoidoisis and he is aware of the lymphadenopathy that was shown on CT. Patient states that he has had two bronchoscopies done in the past. Patient states that his chest pain is resolving.Patient denies fevers, chills, SOB, cough, hemoptysis. Patient has no acute complaints. No further work-up is needed from Pulmonary Standpoint. Patient follows with Oncologist for Sarcoidosis. PMHX: Sarcoidosis, HTN, Hyperlipidemia, DM Type 2 FAMILY HX: Noncontributory ALL:Celecoxib SOCIAL: Denies tobacco and EToH use Chest X-Ray 02/07- No active disease. Congestion. 7mm faint nodule in the left upper poles. Dedicated CT scan of [place] without intravenous contrast is recommended for further characterization. Moderate cardiomegaly and mild pulmonary venous congestion. Physical Exam Oxygen Saturation 98% Room General: NAD Cardio: S1. S2, No murmurs, rubs, gallops Resp: CTA Abd: Soft, non-tender, No rebound, rigidity, guarding A/P 1. Sarcoidosis -Chronic -Patient already follows-up with quality assurance monitor body 2. Chest Pain -Acute -Cardiology F/u Past Patient History - Infectious Disease Hx of Infectious Diseases: None - Past Medical History & Family History Past Medical History?: Yes - Past Social History Smoking Status: Never Smoked - CARDIAC Hx Cardiac Disorders: Yes Hx Hypercholesterolemia: Yes Hx Hypertension: Yes - PULMONARY Hx Respiratory Disorders: No - NEUROLOGICAL Hx Neurological Disorder: No - HEENT Hx HEENT Problems: No - RENAL Hx Chronic Kidney Disease: No - ENDOCRINE/METABOLIC Hx Diabetes Mellitus Type 1: Yes - HEMATOLOGICAL/ONCOLOGICAL Hx Blood Disorders: Yes (SICKLE CELL TRAIT) - INTEGUMENTARY Hx Dermatological Problems: No - MUSCULOSKELETAL/RHEUMATOLOGICAL Hx Musculoskeletal Disorders: Yes Hx Falls: No Other/Comment: CARPAL TUNNEL - GASTROINTESTINAL Hx Gastrointestinal Disorders: No - GENITOURINARY/GYNECOLOGICAL Hx Genitourinary Disorders: No - PSYCHIATRIC Hx Psychophysiologic Disorder: No Hx Substance Use: No - SURGICAL HISTORY Hx Surgeries: Yes Hx Tonsillectomy: Yes Other/Comment: RIGHT HAND CARPAL TUNELL SURGERY - ANESTHESIA Hx Anesthesia: Yes Hx Anesthesia Reactions: No Meds Home Medications: Home Medication List Medication Instructions Recorded Confirmed Type Acetaminophen [Tylenol Extra 500 mg PO Q6 PRN #30 tablet 02/10/19 Rx Strength] Allergies/Adverse Reactions: Allergies Allergy/AdvReac Type Severity Reaction Status Date / Time celecoxib [From Celebrex] Allergy RASH Verified 02/07/19 17:18 - Medications Medications: Current Medications Enoxaparin Sodium (Lovenox) 40 mg SC DAILY [facility] Last Admin: 02/10/19 08:59 Dose: 40 mg Glimepiride (Amaryl) 2 mg PO ACB [facility] Last Admin: 02/10/19 08:59 Dose: 2 mg Insulin Human Regular (Novolin R) 0 unit SC ACHS [facility]; Protocol Last Admin: 02/10/19 17:32 Dose: Not Given Losartan Potassium (Cozaar) 100 mg PO DAILY [facility] Last Admin: 02/10/19 08:59 Dose: 100 mg Morphine Sulfate (Morphine) 2 mg IVP Q4 PRN PRN Reason: Pain, moderate (4-7) Last Admin: 02/10/19 01:42 Dose: 2 mg Rosuvastatin Calcium (Crestor) 5 mg PO HS [facility] Last Admin: 02/09/19 21:29 Dose: 5 mg Results - Vital Signs Recent Vital Signs: Last Vital Signs Temp 97.2 F L 02/10/19 16:00 Pulse 81 02/10/19 16:00 Resp 20 02/10/19 16:00 BP 144/92 H 02/10/19 16:00 Pulse Ox 96 02/10/19 16:00 - Labs Result Diagrams: 02/10/19 07:26 02/10/19 07:26 Labs: Laboratory Results - last 24 hr 02/07/19 02/08/19 02/08/19 22:26 06:31 16:41 WBC RBC Hgb Hct MCV MCH MCHC RDW Plt Count MPV Neut % (Auto) Lymph % (Auto) Bureau % (Auto) Eos % (Auto) Baso % (Auto) Neut # (Auto) Lymph # (Auto) Bureau # (Auto) Eos # (Auto) Baso # (Auto) Sodium Potassium Chloride Carbon Dioxide Anion Gap BUN Creatinine Est GFR ( Amer) Est GFR (Non-Af Amer) POC Glucose (mg/dL) 120 H 101 87 Random Glucose Calcium 02/08/19 02/09/19 02/09/19 20:55 06:28 11:49 WBC RBC Hgb Hct MCV MCH MCHC RDW Plt Count MPV Neut % (Auto) Lymph % (Auto) Bureau % (Auto) Eos % (Auto) Baso % (Auto) Neut # (Auto) Lymph # (Auto) Bureau # (Auto) Eos # (Auto) Baso # (Auto) Sodium Potassium Chloride Carbon Dioxide Anion Gap BUN Creatinine Est GFR ( Amer) Est GFR (Non-Af Amer) POC Glucose (mg/dL) 91 89 91 Random Glucose Calcium 02/10/19 02/10/19 02/10/19 06:20 07:26 07:26 WBC 3.1 L RBC 4.82 Hgb 11.6 L Hct 36.4 MCV 75.5 L MCH 24.2 L MCHC 32.0 L RDW 15.3 H Plt Count 151 MPV 9.3 Neut % (Auto) 58.7 Lymph % (Auto) 21.7 Bureau % (Auto) 15.4 H Eos % (Auto) 3.8 Baso % (Auto) 0.4 Neut # (Auto) 1.8 Lymph # (Auto) 0.7 L Bureau # (Auto) 0.5 Eos # (Auto) 0.1 Baso # (Auto) 0.0 Sodium 134 Potassium 4.6 Chloride 103 Carbon Dioxide 26 Anion Gap 10 BUN 31 H Creatinine 1.8 H Est GFR ( Amer) 45 Est GFR (Non-Af Amer) 37 POC Glucose (mg/dL) 98 Random Glucose 91 Calcium 10.0 02/10/19 02/10/19 11:30 16:57 WBC RBC Hgb Hct MCV MCH MCHC RDW Plt Count MPV Neut % (Auto) Lymph % (Auto) Bureau % (Auto) Eos % (Auto) Baso % (Auto) Neut # (Auto) Lymph # (Auto) Bureau # (Auto) Eos # (Auto) Baso # (Auto) Sodium Potassium Chloride Carbon Dioxide Anion Gap BUN Creatinine Est GFR ( Amer) Est GFR (Non-Af Amer) POC Glucose (mg/dL) 106 114 H Random Glucose Calcium
--- NOTE | 2019-02-10 17:58 | NM ---
Date of service: 02/10/2019 PROCEDURE: Whole Body Bone Scan HISTORY: r/o mets COMPARISON: None available. TECHNIQUE: Following administration of 24.8 miCu of Tc MDP multiplanar whole body images were obtained. FINDINGS: Evidence for bony metastatic disease: None. Degenerative uptake: Bilateral knees ankles and feet. Physiologic uptake: Normal physiologic activity in the kidneys. Other findings: None. IMPRESSION: No evidence of bony metastatic disease.
--- NOTE | 2019-02-10 21:09 | CP.PCM.DIS ---
Provider - Provider Date of Admission: 02/07/19 19:10 Attending physician: Bernardino Henning MD Consults: 02/07/19 18:13 Hematology Oncology Consult Routine Comment: Consulting Provider: Christian Louise Consulting Physician: Christian Louise Reason for Consult: lytic lesions in chest 02/07/19 21:23 Hematology Oncology Consult Routine Comment: Consulting Provider: Christian Louise Consulting Physician: Christian Louies Reason for Consult: lymphadenopathy 02/07/19 22:36 Cardiology Consult Routine Comment: Consulting Provider: Ebonie Wilson Consulting Physician: Ebonie Wilson Reason for Consult: Chest pain 02/10/19 09:36 Pulmonology Consult Routine Comment: Consulting Provider: Leroy Winston Consulting Physician: Leroy Winston Reason for Consult: lymphadenopathy/sob Time Spent in preparation of Discharge (in minutes): 30 Hospital Course - Lab Results Lab Results: Most Recent Lab Values WBC 3.1 K/uL (4.8-10.8) L 02/10/19 07:26 RBC 4.82 Mil/uL (4.40-5.90) 02/10/19 07:26 Hgb 11.6 g/dL (12.0-18.0) L 02/10/19 07:26 Hct 36.4 % (35.0-51.0) 02/10/19 07:26 MCV 75.5 fL (80.0-94.0) L 02/10/19 07:26 MCH 24.2 pg (27.0-31.0) L 02/10/19 07:26 MCHC 32.0 g/dL (33.0-37.0) L 02/10/19 07:26 RDW 15.3 % (11.5-14.5) H 02/10/19 07:26 Plt Count 151 K/uL (130-400) 02/10/19 07:26 MPV 9.3 fL (7.2-11.7) 02/10/19 07:26 Neut % (Auto) 58.7 % (50.0-75.0) 02/10/19 07:26 Lymph % (Auto) 21.7 % (20.0-40.0) 02/10/19 07:26 [place] % (Auto) 15.4 % (0.0-10.0) H 02/10/19 07:26 Eos % (Auto) 3.8 % (0.0-4.0) 02/10/19 07:26 Baso % (Auto) 0.4 % (0.0-2.0) 02/10/19 07:26 Neut # (Auto) 1.8 K/uL (1.8-7.0) 02/10/19 07:26 Lymph # (Auto) 0.7 K/uL (1.0-4.3) L 02/10/19 07:26 [place] # (Auto) 0.5 K/uL (0.0-0.8) 02/10/19 07:26 Eos # (Auto) 0.1 K/uL (0.0-0.7) 02/10/19 07:26 Baso # (Auto) 0.0 K/uL (0.0-0.2) 02/10/19 07:26 PT 12.6 SECONDS (9.7-12.2) H 02/07/19 18:31 INR 1.2 02/07/19 18:31 APTT 30 SECONDS (21-34) 02/07/19 18:31 Sodium 134 mmol/L (132-148) 02/10/19 07:26 Potassium 4.6 mmol/L (3.6-5.2) 02/10/19 07:26 Chloride 103 mmol/L (98-107) 02/10/19 07:26 Carbon Dioxide 26 mmol/L (22-30) 02/10/19 07:26 Anion Gap 10 (10-20) 02/10/19 07:26 BUN 31 mg/dL (9-20) H 02/10/19 07:26 Creatinine 1.8 mg/dL (0.8-1.5) H 02/10/19 07:26 Est GFR ( Amer) 45 02/10/19 07:26 Est GFR (Non-Af Amer) 37 02/10/19 07:26 POC Glucose (mg/dL) 114 mg/dL (65-110) H 02/10/19 16:57 Random Glucose 91 mg/dL (75-110) 02/10/19 07:26 Calcium 10.0 mg/dl (8.6-10.4) 02/10/19 07:26 Magnesium 1.5 mg/dL (1.6-2.3) L 02/07/19 18:31 Total Bilirubin 0.3 mg/dL (0.2-1.3) 02/07/19 18:31 AST 28 U/L (17-59) 02/07/19 18:31 ALT < 6 U/L (21-72) L D 02/07/19 18:31 Alkaline Phosphatase 74 U/L (38-126) 02/07/19 18:31 Lactate Dehydrogenase 365 U/L (313-618) 02/08/19 13:30 Total Creatine Kinase 45 U/L (55-170) L 02/07/19 22:43 CK-MB (Mass) 1.19 ng/mL (0.0-3.38) 02/07/19 22:43 Troponin I 0.0130 ng/mL (0.00-0.120) 02/07/19 22:43 NT-Pro-B Natriuret Pep 461 pg/mL (0-900) 02/07/19 18:31 Total Protein 9.3 g/dL (6.3-8.3) H 02/07/19 18:31 Albumin 3.9 g/dL (3.5-5.0) 02/07/19 18:31 Globulin 5.4 gm/dL (2.2-3.9) H 02/07/19 18:31 Albumin/Globulin Ratio 0.7 (1.0-2.1) L 02/07/19 18:31 Prostate Specific Ag 0.787 ng/mL (0.00-4.0) 02/08/19 13:30 Urine Color Yellow (YELLOW) 02/07/19 22:23 Urine Clarity Clear (Clear) 02/07/19 22:23 Urine pH 5.0 (5.0-8.0) 02/07/19 22:23 Ur Specific Pitcher 1.018 (1.003-1.030) 02/07/19 22:23 Urine Protein Negative mg/dL (NEGATIVE) 02/07/19 22:23 Urine Glucose (UA) Normal mg/dL (Normal) 02/07/19 22:23 Urine Ketones Negative mg/dL (NEGATIVE) 02/07/19 22:23 Urine Blood Negative (NEGATIVE) 02/07/19 22:23 Urine Nitrate Negative (NEGATIVE) 02/07/19 22:23 Urine Bilirubin Negative (NEGATIVE) 02/07/19 22:23 Urine Urobilinogen Normal mg/dL (0.2-1.0) 02/07/19 22:23 Ur Leukocyte Esterase Neg Matt/uL (Negative) 02/07/19 22:23 Urine WBC (Auto) 1 /hpf (0-5) 02/07/19 22:23 Urine RBC (Auto) < 1 /hpf (0-3) 02/07/19 22:23 Ur Squamous Epith Cells < 1 /hpf (0-5) 02/07/19 22:23 IgG 3707.9 mg/dL (700.0-1600.0) H 02/08/19 13:30 IgA 132.1 mg/dL (70.0-400.0) 02/08/19 13:30 IgM 37.9 mg/dL (40.0-230.0) L 02/08/19 13:30 Discharge Plan - Discharge Medications Prescriptions: Acetaminophen [Tylenol Extra Strength] 500 mg PO Q6 PRN #30 tablet PRN Reason: Pain, Moderate (4-7) - Follow Up Plan Condition: FAIR Disposition: HOME/ ROUTINE Instructions: Heart Healthy Diet, Chest Pain (DC), Acetaminophen Additional Instructions: Please f/u with Dr. Ricki Youssef office in 1 week Please f/u with Dr. Louise office next sun. 02/19/19 Please f/u with Dr. Winston office - call an d make appointment ( f/u for sarcodosis) Please continue medication as per med. rec. May need cardiology f/u out pt , for cardiac work up - please ask Dr. 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
--- NOTE | 2019-02-11 02:23 | PN ---
PROCEDURE DATE: 02/10/2019 HEMATOLOGY EVALUATION This is a 78-year-old man on followup who has lytic lesions in his bones and unclear for the cause and severe total body pain. The patient is on various medications including glimepiride, losartan, Crestor, and insulin. He is also receiving morphine 2 mg. He said it helps his pain, but when it wears off, pain is even worse. He was seen by me about a month ago, at that time was for an and elevated gamma globulin about 3000 and issue was multiple myeloma versus a monoclonal gammopathy. The PET scan was done about a year ago, it showed no lesions in his bones. At that time, he had mediastinal lymph nodes that were biopsied and showed sarcoidosis. So the issue here was whether the elevated IgG was also due to the sarcoid. In any event, he was having no symptoms as warranted. He decided to defer the bone marrow biopsy and aspiration because he was having no pains. However, he walked into the office two weeks later with a total body pain, had been to [facility] for the pain, and was sent home. They were looking for pulmonary embolism, and on that scan, they found lytic lesions in his bones. I saw the patient, put him on Percocet while we are awaiting due to the bone marrow, and he just had so much of pain, and he should be admitted to the hospital, and we performed a bone marrow aspiration biopsy two days ago. We do not have any results back yet, and he is here for the pain medications for which he is feeling much better. He is able to sit in the chair now and stand a little bit. So at this point, we are going to send him home, see him next week. At that time, hopefully have the bone marrow biopsy results. Included in the workup here was a bone scan that was done today. I do not have any results back, was just done an hour or so ago. Furthermore, the chest x-ray shows no lesions in his lungs and no active disease, but this is just a plain chest x-ray and no obvious lesions in his bones. So at this point, it is unclear why he suddenly has so much bone pain, and he is being discharged on medications. His workup here showed a BUN of 31 and creatinine of 1.8. Also of note, was the IgG of 2700, IgA 132, IgM 38, and we will further evaluate. He is going to my office in a week. Christian Louise MD
--- NOTE | 2019-02-11 06:11 | DS ---
DISCHARGE DIAGNOSES: 1. Lymphadenopathy, rule out lymphoma. 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 3. Chest pain, atypical. 4. Hypertension. HOSPITAL COURSE: This is a 78-year-old -[place] male with history of hypertension, hyperlipidemia and he is being followed up by Dr. Louise. The patient was recently in [facility]. As per the patient and Dr. Louise, the patient had full workup done for his chest pain and the patient did not have any evidence of ischemia. The patient is feeling better. The patient was admitted to the floor because of chest pain, NC was ruled out by three sets of negative cardiac enzymes. Blood pressure 144/92, pulse 81, respiratory rate 20, and temperature 97.2. WBC 3.1, hemoglobin 11.6, hematocrit 36.4, and platelets 151. Sodium 130, potassium 4.6, chloride ____, bicarb 26, BUN 31, creatinine 1.8. The patient's bone scan is negative for metastatic disease. Echocardiogram is pending. The patient is for discharge. Bernardino Henning MD
--- NOTE | 2019-02-11 22:44 | CARD ---
APPROVED REPORT Date of service: 02/10/2019 EXAM: Two-dimensional and M-mode echocardiogram with Doppler and color Doppler. Other Information Quality : TDSRhythm : INDICATION Chest Pain 2D DIMENSIONS IVSd1.0 (0.7-1.1cm)LVDd3.9 (3.9-5.9cm) PWd1.4 (0.7-1.1cm)LA [id number] (18-58mL) LVDs2.7 (2.5-4.0cm)FS (%) 32.5 % LVEF (%)61.5 (>50%)LVEF (Mota's)57.95 % M-Mode DIMENSIONS Left Atrium (MM)4.86 (2.5-4.0cm)IVSd1.09 (0.7-1.1cm) Aortic Root3.57 (2.2-3.7cm)LVDd4.48 (4.0-5.6cm) Aortic Cusp Exc.1.85 (1.5-2.0cm)PWd1.04 (0.7-1.1cm) FS (%) 38 %LVDs2.76 (2.0-3.8cm) LVEF (%)65 (>50%) Mitral Valve MV E Piuwgcky54.9cm/sMV A Bgfrxkhx15.7cm/sE/A ratio0.6 TDI Lateral E' Peak V2.41cm/sMedial E' Peak V3.45cm/sE/Lateral E'24.4 E/Medial E'17.1 Tricuspid Valve TR Peak Ymrzjlwk287yy/sTR Peak Gr.[id number] LEFT VENTRICLE The left ventricle is normal size. There is normal left ventricular wall thickness. Left ventricle systolic function is normal. The Ejection Fraction is 60-65%. There is normal LV segmental wall motion. Tissue Doppler imaging reveals abnormal left ventricular diastolic dysfunction. RIGHT VENTRICLE The right ventricle is normal size. There is normal right ventricular wall thickness. The right ventricular systolic function is normal. ATRIA The left atrium is mildly dilated. The right atrium size is normal. The interatrial septum is intact with no evidence for an atrial septal defect. AORTIC VALVE The aortic valve is normal in structure. No aortic regurgitation is present. There is no aortic valvular stenosis. There is no aortic valvular vegetation. MITRAL VALVE The mitral valve is normal in structure. There is no evidence of mitral valve prolapse. There is no mitral valve stenosis. Mitral regurgitation is trace. TRICUSPID VALVE The tricuspid valve is normal in structure. There is mild tricuspid regurgitation. Right ventricular systolic pressure is estimated at 40-50 mmHg. There is mild-moderate pulmonary hypertension. PULMONIC VALVE The pulmonic valve is not well visualized. There is mild pulmonic valvular regurgitation. GREAT VESSELS The aortic root is normal in size. PERICARDIAL EFFUSION There is no significant pericardial effusion. <Conclusion> Left ventricle systolic function is normal. The Ejection Fraction is 60-65%. Diastolic dysfunction. No aortic regurgitation is present. Mitral regurgitation is trace. There is mild tricuspid regurgitation. There is mild-moderate pulmonary hypertension. There is mild pulmonic valvular regurgitation.
== END 2019-02-10 17:56 | disposition home or self-care (01) | DRG 842 ==
LOC: C.ER 17:05 → C.9E 19:10 → C.6T 20:35
PROVIDERS: ADMIT Internal Medicine; ATTEND Internal Medicine
PROC: 07DR3ZX Extraction of Iliac Bone Marrow, Percutaneous Approach, Diagnostic (ICD-10-PCS; principal; 2019-02-08)
DX: C90.00 Multiple myeloma not having achieved remission (principal); D86.9 Sarcoidosis, unspecified; D57.3 Sickle-cell trait; E78.00 Pure hypercholesterolemia, unspecified; R59.1 Generalized enlarged lymph nodes; E86.0 Dehydration; D64.9 Anemia, unspecified; Z79.4 Long term (current) use of insulin; M89.9 Disorder of bone, unspecified; E11.22 Type 2 diabetes mellitus with diabetic chronic kidney disease; I12.9 Hypertensive chronic kidney disease with stage 1 through stage 4 chronic kidney disease, or unspecified chronic kidney disease; N18.9 Chronic kidney disease, unspecified